=== PATIENT | female | born 1950 | race Caucasian/White ===

== ENCOUNTER → 2016-06-17 | Outpatient (CLI) | payer MEDICARE, BC ==
[~2016-06-17] MED LIST: AMBIEN5 MG PO; ESTROGEN; MILK OF MA400 MG/5 M PO; MVI; PEPCID20 MG PO; RESTORIL15 MG PO; ZOLOFT25 MG PO
== END ==
LOC: BHSO 09:19
DX: F33.41 Major depressive disorder, recurrent, in partial remission (principal)

== ENCOUNTER → 2017-01-01 | Outpatient (CLI) | payer MEDICARE, BC | LOC: BHSO 10:17 | DX: F41.1 Generalized anxiety disorder (principal) ==

== ENCOUNTER → 2017-04-24 | Outpatient (CLI) | payer MEDICARE, BC | LOC: BHSO 15:28 | DX: F33.42 Major depressive disorder, recurrent, in full remission (principal) ==

== ENCOUNTER → 2017-10-20 | Outpatient (CLI) | payer MEDICARE, BC | LOC: BHSO 09:57 | DX: F33.41 Major depressive disorder, recurrent, in partial remission (principal) | CPT/HCPCS: G0463 ==

== ENCOUNTER → 2018-04-15 | Outpatient (CLI) | payer MEDICARE, BC | LOC: BHSO 10:00 | DX: F41.1 Generalized anxiety disorder (principal) | CPT/HCPCS: G0463 ==

== ENCOUNTER → 2018-06-30 | Outpatient (CLI) | payer MEDICARE, BC | LOC: MC.RAD 14:55 | DX: Z12.31 Encounter for screening mammogram for malignant neoplasm of breast (principal); N63.10 Unspecified lump in the right breast, unspecified quadrant ==

== ENCOUNTER → 2018-07-02 | Outpatient (CLI) | payer MEDICARE, BC | LOC: MC.RAD 08:57 | DX: Z12.31 Encounter for screening mammogram for malignant neoplasm of breast (principal); N64.89 Other specified disorders of breast ==

== ENCOUNTER → 2018-10-11 | Outpatient (CLI) | payer MEDICARE, BC | LOC: BHSO 12:59 | DX: F33.41 Major depressive disorder, recurrent, in partial remission (principal) | CPT/HCPCS: G0463 ==

== ENCOUNTER → 2018-12-10 | Outpatient (CLI) | payer MEDICARE, BC | LOC: COL.PUL 10:00 | DX: R06.02 Shortness of breath (principal); R05 Cough | CPT/HCPCS: J7674 ==

== ENCOUNTER → 2019-02-10 | Outpatient (CLI) | payer MEDICARE, BC | LOC: BHSO 08:38 | DX: F41.1 Generalized anxiety disorder (principal) | CPT/HCPCS: G0463 ==

== ENCOUNTER → 2019-05-18 | Outpatient (CLI) | payer MEDICARE, BC | LOC: MC.RAD 11:08 | DX: N63.10 Unspecified lump in the right breast, unspecified quadrant (principal) | CPT/HCPCS: G0279 ==

== ENCOUNTER → 2019-08-08 | Outpatient (CLI) | payer MEDICARE, BC | LOC: BHSO 12:59 | DX: F41.1 Generalized anxiety disorder (principal) | CPT/HCPCS: G0463 ==

== ENCOUNTER → 2020-02-03 | Outpatient (CLI) | payer MEDICARE, BC | LOC: BHSO 08:00 | DX: F41.1 Generalized anxiety disorder (principal) | CPT/HCPCS: G0463 ==